=== PATIENT | female | born 1990 | race Caucasian/White ===

== ENCOUNTER 2018-04-17 21:35 | Emergency (ER) | payer OTHER ==
[~2018-04-17] VITALS: Ht 160 cm; Wt 63.5 kg
[~2018-04-17 21:35] MED LIST: BAYER81 MG; DIGITEK250 MCG; VASOTEC10 MG
[2018-04-17] MEDS ORDERED: DIGOXIN0.25 MG/5 (21:49)
== END 2018-04-17 22:58 | disposition home or self-care (01) ==
LOC: ER 21:35
DX: J06.9 Acute upper respiratory infection, unspecified (principal)

== ENCOUNTER 2018-09-16 09:34 | Outpatient (CLI) | payer OTHER ==
[~2018-09-16 09:34] MED LIST changes: +DIGOXIN0.25 MG/5
== END 2018-09-16 09:44 | disposition home or self-care (01) ==
LOC: LAB 09:34
DX: J11.1 Influenza due to unidentified influenza virus with other respiratory manifestations (principal); J11.81 Influenza due to unidentified influenza virus with encephalopathy

== ENCOUNTER 2018-10-21 22:18 | Outpatient (CLI) | payer OTHER | END 2018-10-22 | disposition home or self-care (01) | LOC: OBS/DEL 22:18 | DX: O26.892 Other specified pregnancy related conditions, second trimester (principal); R10.2 Pelvic and perineal pain; Z34.02 Encounter for supervision of normal first pregnancy, second trimester ==

== ENCOUNTER 2019-06-11 16:01 | Emergency (ER) | payer OTHER ==
[~2019-06-11] VITALS: Ht 162.6 cm; Wt 59.0 kg
== END 2019-06-11 18:58 | disposition home or self-care (01) ==
LOC: ER 16:01
DX: B34.9 Viral infection, unspecified (principal); R50.9 Fever, unspecified

== ENCOUNTER 2020-01-10 15:50 | Outpatient (CLI) | payer OTHER | END 2020-01-10 15:51 | disposition home or self-care (01) | LOC: PPH VACUNA 15:50 | DX: Z23 Encounter for immunization (principal) ==